=== PATIENT | male | born 1985 | race Caucasian/White ===

== ENCOUNTER 2020-09-30 23:28 | Emergency (ER) | payer SELFPAY ==
--- NOTE | 2020-09-30 23:52 | EDPHYS ---
Physician Documentation [facility] Name: Lowell Downey Age: 35 yrs Sex: Male : 1985 Arrival Date: 09/30/2020 Time: 23:33 Bed Waiting Private MD: ED Physician Teddy Andrade HPI: 10/01 00:51 This 35 yrs old Male presents to ER via Ambulatory with complaints of Cat kb Bite. 00:51 The patient was bitten on the dorsal aspect of middle phalanx of right index finger, by kb a cat, at home. Onset: The symptoms/episode began/occurred 5 hour(s) ago. Animal information: The animal was reported to appear healthy. Animal's vaccinations are up to date. Secondary to the bite the patient reports pain, swelling. Associated signs and symptoms: Pertinent positives: pain at site, swelling at site. Severity of symptoms: At their worst the symptoms were moderate, in the emergency department the symptoms are unchanged. The patient has not experienced similar symptoms in the past. The patient has not recently seen a physician. Pt reports his cat bit him approx 5 hours ago. Reports pain and swelling to finger. Historical: - Allergies: 09/30 23:38 No Known Allergies; jb4 - Home Meds: 23:38 None [Active]; jb4 - PMHx: 23:38 None; jb4 - PSHx: 23:38 None; jb4 - Immunization history:: Adult Immunizations not up to date. - Social history:: Smoking status: Patient denies any tobacco usage or history of. Patient uses alcohol, occasionally. Patient/guardian denies using street drugs. ROS: 10/01 00:50 Constitutional: Negative for fever, chills, and weight loss, Respiratory: Negative for kb shortness of breath, cough, wheezing, and pleuritic chest pain, MS/Extremity: Negative for injury and deformity, Neuro: Negative for headache, weakness, numbness, tingling, and seizure. Skin: Positive for puncture, swelling, cat bite. Exam: 00:49 Constitutional: This is a well developed, well nourished patient who is awake, alert, kb and in no acute distress. Head/Face: Normocephalic, atraumatic. Respiratory: Respirations even and unlabored. No increased work of breathing, no retractions or nasal flaring. Neuro: Awake and alert, GCS 15, oriented to person, place, time, and situation. Moves all extremities. Normal gait. 00:49 Musculoskeletal/extremity: Extremities: grossly normal except: noted in the dorsal aspect of middle phalanx of right index finger: pain, puncture, swelling, ROM: intact in all extremities, Circulation is intact in all extremities. Sensation intact. 00:49 Skin: injury, bite(s), of the dorsal aspect of middle phalanx of right index finger, puncture. Vital Signs: 09/30 23:38 BP 140 / 97; Pulse 83; Resp 18; Temp 99.2(O); Pulse Ox 99% on R/A; Weight 90.72 kg (R); jb4 Height 5 ft. 10 in. (177.80 cm) (R); Pain 7/10; 23:38 Body Mass Index 28.70 (90.72 kg, 177.80 cm) jb4 MDM: 23:43 Patient medically screened. kb 10/01 00:49 Data reviewed: vital signs, nurses notes. Data interpreted: Pulse oximetry: on room air kb is 99 %. Interpretation: normal. Counseling: I had a detailed discussion with the patient and/or guardian regarding: the historical points, exam findings, and any diagnostic results supporting the discharge/admit diagnosis, the need for outpatient follow up, a hand specialist, to return to the emergency department if symptoms worsen or persist or if there are any questions or concerns that arise at home. Administered Medications: 09/30 23:55 Drug: Augmentin (Amoxicillin-Clavulanate) 875 mg Route: PO; [facility] 10/01 00:06 Follow up: Response: No adverse reaction [facility] 09/30 23:55 Drug: Doxycycline 100 mg Route: PO; [facility] 10/01 00:06 Follow up: Response: No adverse reaction [facility] 09/30 23:55 Drug: Ibuprofen 800 mg Route: PO; [facility] 10/01 00:06 Follow up: Response: No adverse reaction [facility] 09/30 23:55 Drug: Tetanus-Diphtheria Toxoid Adult 0.5 ml {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 Exp: jb4 11/02/2021. Lot #: [id number]. } Route: IM; Site: right deltoid; 10/01 00:06 Follow up: Response: No adverse reaction jb4 Disposition: 11:34 Co-signature as Attending Physician, Teddy Andrade MD I agree with the assessment and shailesh plan of care. Disposition: 09/30/20 23:51 Discharged to Home. Impression: Bitten by cat, Puncture wound without foreign body of right index finger without damage to nail. - Condition is Stable. - Discharge Instructions: Animal Bite, [id number]. - Prescriptions for Augmentin 875- 125 mg Oral Tablet - take 1 tablet by ORAL route every 12 hours for 10 days; 20 tablet. Ibuprofen 800 mg Oral Tablet - take 1 tablet by ORAL route every 8 hours As needed take with food; 30 tablet. Doxycycline Hyclate 100 mg Oral Tablet - take 1 tablet by ORAL route every 12 hours; 20 tablet. - Medication Reconciliation Form, Thank You Letter, Antibiotic Education, Prescription Opioid Use form. - Follow up: Emergency Department; When: As needed; Reason: Worsening of condition. Follow up: Private Physician; When: 2 - 3 days; Reason: Recheck today's complaints, Continuance of care, Re-evaluation by your physician. Signatures: Whitney Freedman, TIMBER FELLER-C TIMBER FELLER-Saurabhb Teddy Andrade MD MD cha Bryson, James, RN RN jb4 Corrections: (The following items were deleted from the chart) 00:06 09/30 23:51 09/30/2020 23:51 Discharged to Home. Impression: Bitten by cat; Puncture jb4 wound without foreign body of right index finger without damage to nail. Condition is Stable. Forms are Medication Reconciliation Form, Thank You Letter, Antibiotic Education, Prescription Opioid Use. Follow up: Emergency Department; When: As needed; Reason: Worsening of condition. Follow up: Private Physician; When: 2 - 3 days; Reason: Recheck today's complaints, Continuance of care, Re-evaluation by your physician. kb
--- NOTE | 2020-09-30 23:52 | ER ---
Nurse's Notes [facility] Name: Lowell Downey Age: 35 yrs Sex: Male : 1985 Arrival Date: 09/30/2020 Time: 23:33 Bed Waiting Private MD: Diagnosis: Bitten by cat;Puncture wound without foreign body of right index finger without damage to nail Presentation: 09/30 23:36 Chief complaint: Patient states: I picked my cat up and he bit my first right finger. jb4 it happened about 5-6 hours ago. Coronavirus screen: Client denies travel out of the [place] in the last 14 days. At this time, the client does not indicate any symptoms associated with coronavirus-19. Ebola Screen: No symptoms or risks identified at this time. Onset of symptoms was September 30, 2020. Transition of care: patient was not received from another setting of care. 23:36 Method Of Arrival: Ambulatory 4 23:36 Acuity: ABBY 4 jb4 23:40 Initial Sepsis Screen: Does the patient meet any 2 criteria? No. Patient's initial jb4 sepsis screen is negative. Does the patient have a suspected source of infection? No. Patient's initial sepsis screen is negative. Risk Assessment: Do you want to hurt yourself or someone else? Patient reports no desire to harm self or others. Triage Assessment: 23:36 Bite description: bite sustained to dorsal aspect of middle phalanx of right index jb4 finger is full thickness, infected, from animal, by a cat, animal information: vaccination(s) is unknown. General: Appears in no apparent distress. uncomfortable, Behavior is calm, cooperative, appropriate for age. Historical: - Allergies: 23:38 No Known Allergies; jb4 - Home Meds: 23:38 None [Active]; jb4 - PMHx: 23:38 None; jb4 - PSHx: 23:38 None; jb4 - Immunization history:: Adult Immunizations not up to date. - Social history:: Smoking status: Patient denies any tobacco usage or history of. Patient uses alcohol, occasionally. Patient/guardian denies using street drugs. Screenin:46 Abuse screen: Denies threats or abuse. Nutritional screening: No deficits noted. jb4 Tuberculosis screening: No symptoms or risk factors identified. Fall Risk None identified. Assessment: 23:46 General: Appears in no apparent distress. uncomfortable, Behavior is calm, cooperative, jb4 appropriate for age. Pain: Complains of pain in dorsal aspect of middle phalanx of right index finger Pain does not radiate. Pain currently is 7 out of 10 on a pain scale. Neuro: Level of Consciousness is awake, alert, obeys commands, Oriented to person, place, time, situation. Cardiovascular: Patient's skin is warm and dry. Respiratory: Airway is patent Respiratory effort is even, unlabored, Respiratory pattern is regular, symmetrical. GI: No signs and/or symptoms were reported involving the gastrointestinal system. : No signs and/or symptoms were reported regarding the genitourinary system. EENT: No signs and/or symptoms were reported regarding the EENT system. Derm: Skin is intact, Skin is pink, warm \T\ dry. Musculoskeletal: Circulation, motion, and sensation intact. Range of motion: intact in all extremities. Injury Description: Bite sustained to dorsal aspect of middle phalanx of right index finger caused by a cat, is full thickness, from animal. Vital Signs: 23:38 BP 140 / 97; Pulse 83; Resp 18; Temp 99.2(O); Pulse Ox 99% on R/A; Weight 90.72 kg (R); jb4 Height 5 ft. 10 in. (177.80 cm) (R); Pain 7/10; 23:38 Body Mass Index 28.70 (90.72 kg, 177.80 cm) jb4 ED Course: 23:33 Patient arrived in ED. cf2 23:36 Arm band placed on right wrist. jb4 23:37 Triage completed. jb4 23:42 Whitney Freedman FNP-C [facility] kb 23:42 Teddy Andrade MD is Attending Physician. kb 23:46 Patient has correct armband on for positive identification. jb4 23:46 No provider procedures requiring assistance completed. Patient did not have IV access jb4 during this emergency room visit. 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 Exp: jb4 11/02/2021. Lot #: [id number]. } Route: IM; Site: right deltoid; 10/01 00:06 Follow up: Response: No adverse reaction jb4 Outcome: 09/30 23:51 Discharge ordered by MD. urban 10/01 00:03 Discharged to home ambulatory. jb4 Condition: stable Discharge instructions given to patient, Instructed on discharge instructions, follow up and referral plans. medication usage, Demonstrated understanding of instructions, follow-up care, medications, Prescriptions given X 3. 00:07 Patient left the ED. jb4 Signatures: Whitney Freedman, OYSTER BUYER-C CHRISTY-Randell Delacruz RN RN jb4 Milton Batista [facility]
[2020-10-01] MEDS ORDERED: AMOX/K CLAV 875 MG TAB ONE (00:11)
[2020-10-01] MEDS ORDERED: TETANUS & DIPHTHERIA TOX,ADULT 0.5 ML VIAL ONE (00:11)
[2020-10-01] MEDS ORDERED: IBUPROFEN 400 MG TAB ONE (00:11)
[2020-10-01] MEDS ORDERED: DOXYCYCLINE 100 MG CAP PO ONE (00:11)
[2020-10-01 00:28] VITALS: BP 140/97; TEMP 99.2; O2SAT 99
== END 2020-10-01 00:07 | disposition home or self-care (01) ==
LOC: ER 23:28
DX: S61.230A Puncture wound without foreign body of right index finger without damage to nail, initial encounter (principal); W55.01XA Bitten by cat, initial encounter; Y92.009 Unspecified place in unspecified non-institutional (private) residence as the place of occurrence of the external cause; Z23 Encounter for immunization
CPT/HCPCS: 90471; 90714; 99283

== ENCOUNTER 2020-10-01 15:30 | Inpatient (IN) | payer SELFPAY ==
[2020-10-01 15:45] LABS: Absolute Lymphocytes (CBC) 1.8 K/uL (0.7-4.9); Hematocrit 48.5 % (39.6-49.0); Lymphocytes % 19.6 % (15.3-44.8); MPV 9.4 fL (7.6-11.3); RBC Red Blood Cell Count 5.35 M/uL (4.33-5.43)
[2020-10-01] MEDS ORDERED: Ringers Lactate 1,000 ML IV ONE (16:06)
[2020-10-01] MEDS ORDERED: CEFAZOLIN/SWI 1gm 1 GM/10 ML SYR ONE (16:06)
[2020-10-01] MEDS ORDERED: FENTANYL CITR 100 MCG/2 ML ONE (16:22)
[2020-10-01] MEDS ORDERED: MIDAZOLAM HCL 2 MG/2 ML INJ ONE (16:23)
[2020-10-01] MEDS ORDERED: propofoL 200 MG/20 ML VIAL IV ONE (16:23)
[2020-10-01] MEDS ORDERED: KETOROLAC 30 MG/ML INJ ONE (16:24)
[2020-10-01] MEDS ORDERED: LIDOCAINE 1% MPF 5 ML VIAL ONE (16:24)
--- NOTE | 2020-10-01 17:05 | RAD REPORT ---
EXAM DESCRIPTION: RAD - Hand Right 2 View - 10/01/2020 3:53 pm CLINICAL HISTORY: PREOP, bite to the right index finger COMPARISON: No comparisons TECHNIQUE: Right hand two view examination performed FINDINGS: Significant soft tissue swelling is seen right second digit primarily at the base. No air or foreign body in the soft tissues. No fracture or acute bone findings seen. No joint abnormality se en. IMPRESSION: Right second digit soft tissue swelling. No air or foreign body seen.
[2020-10-01] MEDS: HYDROMORPHONE HCL 1 MG/ML INJ ONE ×2 (17:21→17:29)
[2020-10-01] MEDS ORDERED: MEPERIDINE HCL 50 MG/ML IM PRN (17:25)
[2020-10-01] MEDS ORDERED: ONDANSETRON 4 MG/2 ML VIAL IV PRN (19:10)
--- NOTE | 2020-10-01 19:47 | P.CNS ---
Date of Consult: 10/01/20 Mr. Downey is a 35 yo male with no PMHx or surgical history here today after surgery on R index finger after sustaining a cat bite. He reports he was bit twice by his own cat and after a few hours began to have edema, erythema, purulent drainage, and bloody drainage. Then he began to have difficulty moving his fingers so he reported to the ED. He says he is in mild, aching pain on index finger, middle finger and knuckle post surgery but otherwise feels okay. Denies nausea, vomiting, night sweats and chills. Consulted for medical lyly mccord. Vitals are stable. BMP pending. A1c, lipid panel, TSH/T4 pending. Patient on regular diet. DVT ppx with SCDs. Pain management control and antibiotics input by Dr. Ortez. Denies smoking and drug use, drinks alcohol occasionally. Dad has HTN, no other pertinent family history.
[2020-10-01] MEDS: PENICILLIN MU IV SCH (20:00)
[2020-10-01] MEDS: NA CHLORIDE IV SCH (20:00)
[2020-10-01 20:19] LABS: Albumin 3.9 g/dL (3.4-5.0); Bilirubin Total 0.8 mg/dL (0.2-1.0); Protein, Total 7.2 g/dL (6.4-8.2)
[2020-10-01 20:30] LABS: Thyroid Stimulating Hormone 1.82 uIU/mL (0.360-3.740)
[2020-10-02] MEDS: PENICILLIN MU IV SCH ×5 (00:13→22:58)
[2020-10-02] MEDS: NA CHLORIDE IV SCH ×5 (00:13→22:58)
--- NOTE | 2020-10-02 01:56 | OP ---
Surgeon: Jose L Ortez MD Preoperative Diagnosis: Cat bite to the right index finger. Postoperative Diagnosis: Cat bite to the right index finger. Procedure Performed: Debridement of skin and subcutaneous tissue. Anesthesia: General. Procedure In Detail: After satisfactory general anesthesia, the right hand was prepped with Betadine scrub and paint. Dry sterile drapes were applied in usual manner. Arm was elevated. Tourniquet was inflated to 250 mmHg. Hand was placed on the Roto Lock table. Multiple cat bites over the dorsal and volar surface of the right index finger were debrided. After the incision was made, then the wounds were connected. There was laceration to the dorsum. The total length was approximately from the metacarpal head to the PIP joint. On the volar surface, there was laceration over the PIP joint. This was opened as well. Cultures were taken. Wound was jet lavaged, irrigated. There was no second foreign body or abscesses found. Tourniquet was released. Electrocautery was used for hemostasis. Wound was packed with Betadine-soaked quarter-inch Nu Gauze, Kerlix and Ronald. The patient tolerated procedure well, returned to Recovery. MARIVEL/CRISTOPHER Voice ID: [id number] Report ID: [id number] GEORGINA
[2020-10-02 02:37] VITALS: BMI 32.9
[2020-10-02] MEDS: CODEINE 30MG/APAP 300MG TAB PO PRN ×4 (04:56→23:02)
[2020-10-02 06:00] LABS: Absolute Lymphocytes (CBC) 1.5 K/uL (0.7-4.9); Basophils % 0.8 % (0-1.3); Hematocrit 42.3 % (39.6-49.0); Lymphocytes % 22.6 % (15.3-44.8); MPV 9.4 fL (7.6-11.3); RBC Red Blood Cell Count 4.65 M/uL (4.33-5.43)
[2020-10-02 06:22] LABS: Phosphorus 3.8 mg/dL (2.5-4.9)
[2020-10-02 06:25] LABS: Magnesium 2.4 mg/dL (1.8-2.4)
[2020-10-02 23:38] LABS: Urine Appearance CLEAR (Clear); Urine Bilirubin NEGATIVE (Negative); Urine Blood NEGATIVE (Negative); Urine Color DK YELLOW (Yellow); Urine Glucose NEGATIVE (Negative); Urine Protein NEGATIVE (Negative); Urine Specific Gravity 1.025 (1.005-1.030)
[2020-10-02 23:43] LABS: Urine Microscopic Reflex NO UMIC
--- NOTE | 2020-10-03 01:54 | PN ---
The patient's wounds are improving. Planned surgery on Tuesday. He will be n.p.o. at midnight Tuesday . We will begin dressing changes, quarter-inch Nu Gauze, 2 inch Ronald q.12 hours. MARIVEL/CRISTOPHER Voice ID: [id number] Report ID: [id number]
[2020-10-03] MEDS: PENICILLIN MU IV SCH ×4 (06:11→23:09)
[2020-10-03] MEDS: NA CHLORIDE IV SCH ×4 (06:11→23:09)
[2020-10-03] MEDS: CODEINE 30MG/APAP 300MG TAB PO PRN ×4 (13:40→23:09)
[2020-10-04] MEDS: PENICILLIN MU IV SCH ×4 (06:30→23:59)
[2020-10-04] MEDS: NA CHLORIDE IV SCH ×4 (06:30→23:59)
[2020-10-04] MEDS: CODEINE 30MG/APAP 300MG TAB PO PRN ×3 (06:30→19:39)
[2020-10-04] MEDS ORDERED: BISACODYL E.C. 5 MG TAB PO ONE (10:56)
--- NOTE | 2020-10-04 12:07 | DS ---
The patient's wound continued to improve. He is getting dressing changes. He showed me photographs . There are some there are dry tissue, but the wounds are clean. The roscoe removed. No fever, no chills, and feeling better. Planned surgery on Tuesday. N.p.o. at midnight Tuesday. MARIVEL/CRISTOPHER Voice ID: [id number] Report ID: [id number] GEORGINA
[2020-10-05] MEDS: NA CHLORIDE IV SCH ×4 (05:32→23:26)
[2020-10-05] MEDS: PENICILLIN MU IV SCH ×4 (05:32→23:26)
[2020-10-05] MEDS: CODEINE 30MG/APAP 300MG TAB PO PRN ×4 (05:38→23:26)
[2020-10-05 06:42] LABS: Absolute Lymphocytes (CBC) 1.8 K/uL (0.7-4.9); Basophils % 1.5 % (0-1.3); Hematocrit 43.9 % (39.6-49.0); Lymphocytes % 36.8 % (15.3-44.8); MPV 8.9 fL (7.6-11.3); RBC Red Blood Cell Count 4.82 M/uL (4.33-5.43)
[2020-10-05 06:49] LABS: Protime INR 1.06
[2020-10-05 06:53] LABS: Magnesium 2.4 mg/dL (1.8-2.4); Phosphorus 3.6 mg/dL (2.5-4.9); Potassium 4.1 mmol/L (3.5-5.1)
--- NOTE | 2020-10-05 19:00 | P.CNS ---
Date of Consult: 10/01/20 Reason for Consult: Assistance with medical management Requesting Physician: Jose L Ortez Chief Complaint: Cat bite History of Present Illness: Mr. Downey is a 35 yo male with no PMHx or surgical history here today after surgery on R index finger after sustaining a cat bite. He reports he was bit twice by his own cat and after a few hours began to have edema, erythema, purulent drainage, and bloody drainage. Then he began to have difficulty moving his fingers so he reported to the ED. He says he is in mild, aching pain on index finger, middle finger and knuckle post surgery but otherwise feels okay. Denies nausea, vomiting, night sweats and chills. Consulted for medical mangement. Vitals are stable. BMP pending. A1c, lipid panel, TSH/T4 pending. Patient on regular diet. DVT ppx with SCDs. Pain management control and antibi otics input by Dr. Ortez. Denies smoking and drug use, drinks alcohol occasionally. Dad has HTN, no other pertinent family history. Allergies No Known Allergies Allergy (Unverified 10/01/20 19:44) Home Medications: NK [No Home Meds] 10/01/20 - Past Medical/Surgical History Diabetic: No Past Medical History: Patient denies medical history Past Surgical History: Patient denies surgical history - Family History Mother Medical History: Diabetes, Blood disorders Family History: Reviewed- Non-Contributory - Social History Smoking therapy provided: No Alcohol use: No CD- Drugs: No Place of Residence: Home Review of Systems 10-point ROS is otherwise unremarkable Physical Examination Temp Pulse Resp BP Pulse Ox 99.0 F 55 18 116/64 94 10/05/20 16:00 10/05/20 16:00 10/05/20 18:12 10/05/20 16:00 10/05/20 18:12 General: Alert, In no apparent distress, Oriented x3 HEENT: Atraumatic, PERRLA, Mucous membr. moist/pink, EOMI, Sclerae nonicteric Neck: Supple, 2+ carotid pulse no bruit, No LAD, Without JVD or thyroid abnormality Respiratory: Clear to auscultation bilaterally, Normal air movement Cardiovascular: Regular rate/rhythm, Normal S1 S2, No murmurs Gastrointestinal: Normal bowel sounds, Soft and benign, Non-distended, No tenderness Musculoskeletal: No clubbing, Swelling, Erythema, Tenderness Integumentary: Tenderness/swelling, Erythema, Warmth Neurological: Normal gait, Normal strength at 5/5 x4 extr, Sensation intact, Cranial nerves 3-12 intact Lymphatics: No axilla or inguinal lymphadenopathy Laboratory Data (last 24 hrs) 10/05/20 06:30: Sodium 142, Potassium 4.1, BUN 12, Creatinine 1.03, Glucose 95, Phosphorus 3.6, Magnesium 2.4 10/05/20 06:30: PT 12.2, INR 1.06, APTT 32.1 10/05/20 06:30: WBC 5.00 D, Hgb 14.8, Hct 43.9, Plt Count 233 D - Problems (1) Cellulitis of hand, right Current Visit: Yes Status: Acute (2) Infected cat bite Current Visit: Yes Status: Acute Conclusions/ Impression: 1. Continue with IV antibiotic 2. Continue with local wound care 3. Wound care consultation/Hand surgery consultation 4. Gentle IV hydration 5. Monitor CBC 6. Strict blood sugar monitoring 7. Pain control 8. GI and DVT prophylaxis Critical Care: No Time Spent Managing Pts care (In Minutes): 35
--- NOTE | 2020-10-05 19:01 | P.PN ---
Subjective Date of Service: 10/02/20 Subjective: No new changes, No C/O voiced Review of Systems 10-point ROS is otherwise unremarkable Physical Examination - Vital Signs Temperature: 99.0 F Blood Pressure: 116/64 Pulse: 55 Respirations: 18 Pulse Ox (%): 94 - Physical Exam General: Alert, In no apparent distress, Oriented x3 Cardiovascular: Regular rate/rhythm, Normal S1 S2 Integumentary: Other (Dressing is clean dry and intact) - Studies Laboratory Data (last 24 hrs) 10/05/20 06:30: Sodium 142, Potassium 4.1, BUN 12, Creatinine 1.03, Glucose 95, Phosphorus 3.6, Magnesium 2.4 10/05/20 06:30: PT 12.2, INR 1.06, APTT 32.1 10/05/20 06:30: WBC 5.00 D, Hgb 14.8, Hct 43.9, Plt Count 233 D Microbiology Data (last 24 hrs): 10/01/20 16:40 Wound - Finger Gram Stain - Final 10/01/20 16:40 Wound - Finger Culture & Sensitivity - Final Assessment & Plan - Problems (Diagnosis) (1) Cellulitis of hand, right Current Visit: Yes Status: Acute (2) Infected cat bite Current Visit: Yes Status: Acute - Plan 1. Continue with IV antibiotic 2. Continue with local wound care 3. Wound care consultation/Hand surgical consultation 4. Gentle IV hydration 5. Monitor CBC 6. Strict blood sugar monitoring 7. Pain control 8. GI and DVT prophylaxis Discharge Plan: Home Plan to discharge in: Greater than 2 days - Advance Directives Does patient have a Living Will: No Does patient have a Durable POA for Healthcare: No - Code Status/Comfort Care Code Status Assessed: Yes Code Status: Full Code Critical Care: No Time Spent Managing PTS Care (In Minutes): 25
--- NOTE | 2020-10-05 19:02 | P.PN ---
Date of Service: 10/03/20 Subjective Subjective: Patient is doing well with no new complaints Review of Systems 10-point ROS is otherwise unremarkable Physical Examination - Vital Signs Reviewed - Physical Exam General: Alert, In no apparent distress, Oriented x3 Cardiovascular: Regular rate/rhythm, Normal S1 S2 Integumentary: Other (Dressing is clean dry and intact) Assessment & Plan - Problems (Diagnosis) (1) Cellulitis of hand, right Current Visit: Yes Status: Acute (2) Infected cat bite Current Visit: Yes Status: Acute - Plan 1. Continue with IV antibiotic 2. Continue with local wound care 3. Wound care consultation/Hand surgical consultation 4. Gentle IV hydration 5. Monitor CBC 6. Strict blood sugar monitoring 7. Pain control 8. GI and DVT prophylaxis
--- NOTE | 2020-10-05 19:05 | P.PN ---
Date of Service: 10/04/20 Subjective Subjective: Wound was changed. Wound with no significant drainage. Review of Systems 10-point ROS is otherwise unremarkable Physical Examination - Vital Signs Reviewed - Physical Exam General: Alert, In no apparent distress, Oriented x3 Cardiovascular: Regular rate/rhythm, Normal S1 S2 Integumentary: Wound is open and clean, dry, and intact; no significant drainage Assessment & Plan - Problems (Diagnosis) (1) Cellulitis of hand, right Current Visit: Yes Status: Acute (2) Infected cat bite Current Visit: Yes Status: Acute - Plan 1. Continue with IV antibiotic 2. Continue with pain control 3. Wound care consultation/Hand surgical consultation appreciated 4. Hep-Lock IV 5. GI and DVT prophylaxis
--- NOTE | 2020-10-05 19:07 | P.PN ---
Date of Service: 10/05/20 Subjective Subjective: Patient is to go to the OR to get the wound closed tomorrow morning. Should be able to discharge after wound closure Review of Systems 10-point ROS is otherwise unremarkable Physical Examination - Vital Signs Reviewed - Physical Exam General: Alert, In no apparent distress, Oriented x3 Cardiovascular: Regular rate/rhythm, Normal S1 S2 Integumentary: Dressing is clean dry and intact Assessment & Plan - Problems (Diagnosis) (1) Cellulitis of hand, right Current Visit: Yes Status: Acute (2) Infected cat bite Current Visit: Yes Status: Acute - Plan Continue with plan of care as mentioned below: 1. Continue with IV antibiotic 2. Continue with pain control 3. Wound care consultation/Hand surgical consultation appreciated 4. Hep-Lock IV 5. GI and DVT prophylaxis
[2020-10-06] MEDS: PENICILLIN MU IV SCH (05:15)
[2020-10-06] MEDS: NA CHLORIDE IV SCH (05:15)
[2020-10-06] MEDS ORDERED: Ringers Lactate 1,000 ML IV ONE (08:38)
[2020-10-06] MEDS ORDERED: propofoL 200 MG/20 ML VIAL IV ONE (10:20)
[2020-10-06] MEDS ORDERED: MIDAZOLAM HCL 2 MG/2 ML INJ ONE (10:20)
[2020-10-06] MEDS ORDERED: FENTANYL CITR 100 MCG/2 ML ONE (10:20)
[2020-10-06] MEDS ORDERED: LIDOCAINE 2% MPF 5 ML VIAL ONE (10:23)
[2020-10-06] MEDS ORDERED: KETOROLAC 30 MG/ML INJ ONE (10:23)
[2020-10-06] MEDS: MORPHINE 4 MG/ML SYR ONE ×4 (11:11→11:30)
[2020-10-06 11:37] VITALS: BP 140/83; TEMP 97.2; O2SAT 100
[2020-10-06] MEDS ORDERED: PENICILLIN V K 250 MG TABLET PO SCH (12:00)
--- NOTE | 2020-10-06 12:37 | P.PN ---
Subjective Date of Service: 10/06/20 Chief Complaint: Cat bite Subjective: Improving Physical Examination - Vital Signs Temperature: 97.2 F Blood Pressure: 140/83 Pulse: 61 Respirations: 18 Pulse Ox (%): 97 - Physical Exam General: Alert, In no apparent distress, Oriented x3, Cooperative HEENT: Atraumatic Neck: Supple Respiratory: Clear to auscultation bilaterally, Normal air movement Cardiovascular: Normal pulses, Regular rate/rhythm Gastrointestinal: Normal bowel sounds Musculoskeletal: Other (Bandage in place to the right hand.) - Studies Microbiology Data (last 24 hrs): 10/01/20 16:40 Wound - Finger Gram Stain - Final 10/01/20 16:40 Wound - Finger Culture & Sensitivity - Final Assessment & Plan Discharge Plan: Home Plan to discharge in: 24 Hours Physician Review Additional Text: - Problems (Diagnosis) (1) Cellulitis of hand, right Current Visit: Yes Status: Acute (2) Infected cat bite Current Visit: Yes Status: Acute - Plan Continue with plan of care as mentioned below: 1. Continue with IV antibiotic 2. Continue with pain control 3. Plastic surgery plans for debridement and closure today. Anticipate discharge today after surgery. Time Spent Managing Pts Care (In Minutes): 55
--- NOTE | 2020-10-06 21:54 | OP ---
Surgeon: Jose L Ortez MD Preoperative Diagnosis: Open wound of the right index finger. Postoperative Diagnosis: Open wound of the right index finger. Procedure Performed: Debridement of skin and subcutaneous tissue, simple closure, 1.5 cm flap, closure of dorsum. Anesthesia: General. Procedure In Detail: After satisfactory induction of general anesthesia, right hand was prepped with Betadine scrub and paint. Dry sterile drapes were applied in the usual manner. Arm was elevated, exsanguinated with an Esmarch. Tourniquet was inflated to 250 mmHg. Skin and subcutaneous tissue were debrided with a curette. Wound was jet lavaged irrigated with about 1 L of dilute Betadine solution. Tourniquet was released. Electrocautery was used for hemostasis. The volar surface was closed with horizontal mattress sutures. The dorsal surface was closed by flap advancement, 4-0 Prolene, horizontal mattress, vertical mattress, and half buried mattress. Dressed with Xeroform, 2 inch Ronald. The patient tolerated procedure well. Returned to Recovery. MARIVEL/CRISTOPHER Voice ID: [id number] Report ID: [id number] GEORGINA
--- NOTE | 2020-10-07 11:55 | DS ---
Date of Discharge: 10/06/2020 Hospital Course: A 35-year-old male, right-hand dominant, who was cat bite and sustained injury to his right index finger. Tetanus shot was given alcohol use. No medications. N o allergies. Multiple lacerations and bites over the right index finger dorsal surface and the volar surface as well. He was taken to surgery and underwent debridement. Wound was left open. He was t reated with Kefzol and then returned surgery for debridement and flap closure. Discharged home on pe nicillin VK 500 mg p.o. q.6 hours. Return to the office following Tuesday at 3 o'clock at the [facility]. Condition on discharge good. MARIVEL/CRISTOPHER Voice ID: [id number] Report ID: [id number]
== END 2020-10-06 15:08 | disposition home or self-care (01) | DRG 581 ==
LOC: OR 15:30 → 2ND 18:05 → OBSVTOIN 10-02 07:43
PROVIDERS: ADMIT Specialist; ATTEND Specialist
PROC: 0JDJ0ZZ Extraction of Right Hand Subcutaneous Tissue and Fascia, Open Approach (ICD-10-PCS; 2020-10-01)
PROC: 0JQJ0ZZ Repair Right Hand Subcutaneous Tissue and Fascia, Open Approach (ICD-10-PCS; principal; 2020-10-06 09:00)
DX: S61.250A Open bite of right index finger without damage to nail, initial encounter (principal); L03.011 Cellulitis of right finger; W55.01XA Bitten by cat, initial encounter
CPT/HCPCS: 36415; 80048; 80053; 80061; 81003; 83036; 83605; 83735; 84100; 84439; 84443; 85025; 85610; 85730; 87070; 87075; 87205; G0378; G0379; J0690; J1170; J2250; J2540; J2704; J3010; J7120; U0003